=== PATIENT | female | born 1950 | race Caucasian/White ===

== ENCOUNTER → 2019-12-31 | Day surgery (SDC) | payer MEDICARE, OTHER ==
[2019-12-26 12:16] LABS: BASOPHILS # (AUTO) 0.1 (0.0-0.1); EOSINOPHILS # (AUTO) 0.1 (0.0-0.4); HEMATOCRIT 34.1 % (34.2-44.1); LYMPHOCYTES # (AUTO) 1.7 (1.0-3.2); LYMPHOCYTES % 24.5 % (18.0-39.1); MEAN CORPUSCULAR HEMOGLOBIN 28.6 pg (28-32); MEAN CORPUSCULAR HGB CONC 32.3 g/dL (31-35); MEAN CORPUSCULAR VOLUME 88.6 fL (81-99); MONOCYTES # (AUTO) 0.9 (0.2-0.8); MONOCYTES % 12.4 % (4.4-11.3); NEUTROPHILS # (AUTO) 4.3 (2.1-6.9); PLATELET COUNT 242 x10e3/uL (140-360); RED BLOOD COUNT 3.85 x10e6/uL (3.6-5.1); RED CELL DISTRIBUTION WIDTH 12.8 % (11.7-14.4)
[2019-12-26 12:39] LABS: ALANINE AMINOTRANSFERASE 26 IU/L (0-55); ALBUMIN 3.9 g/dL (3.5-5.0); ALBUMIN/GLOBULIN RATIO 1.2 (0.8-2.0); ALKALINE PHOSPHATASE 60 IU/L (40-150); ANION GAP 11.8 mmol/L (8-16); BLOOD UREA NITROGEN 10 mg/dL (7-26); BUN/CREATININE RATIO 11 (6-25); CALCIUM 9.5 mg/dL (8.4-10.2); CARBON DIOXIDE 27 mmol/L (22-29); CHLORIDE 100 mmol/L (98-107); CREATININE, SERUM 0.89 mg/dL (0.57-1.11); EST GLOMERULAR FILTRATION RATE > 60 ML/MIN (60-); GLUCOSE 85 mg/dL (74-118); POTASSIUM 3.8 mmol/L (3.5-5.1); SODIUM 135 mmol/L (136-145)
--- NOTE | 2019-12-27 09:56 | NUR ---
1000a Preop intake completed yesterday per phone interview by Olamide CANALES CCL. Pt denies any s/s related to COVID. Pre testing completed and Covid testing results pending. Upon interview disclosure pt voiced starting antibiotics for UTI today and will encourage her to inform procedural MD of additional medication added. Denies elevation of temperature and states has hx of "bladder issues" Reported on hand off to pre op staff.Tiffany CANALES of stated additional antibiotic w/o other infection symptoms at u this time.Current CBC with slight abnormalities and will reach out to office of Dr Velez. josse/rn
--- NOTE | 2019-12-27 10:07 | NUR ---
1002 left message with [email or web address] answering service regarding labs and pt current start of antibiotics for UTI scheduled [facility] Dec 30 NO s/s COVID related ds/rn
[~2019-12-31] MED LIST: ALPRAZOLAM 0.5 MG TAB ONE; ASPIRIN81 MG PO; BENICAR40 MG PO; CEFUROXIME250 MG PO; DIPHENHYDRAMINE HCL 25 MG CAP ONE; FENTANYL CITRATE/PF 100MCG/2 ML INJ ONE; HEPARIN SOD (PORCINE) 1000 UNIT/ML 30ML ONE; HEPARIN SOD/SOD CHLORIDE 2,000 ML ONE; HYDROCHLOROTHIA25 MG PO; IOPAMIDOL 370 MG/ML 200 ML INFUS..BTL INJ ONE; LIDOCAINE HCL 2% LOCAL 20 ML VIAL ONE; MIDAZOLAM HCL 2 MG/2 ML VIAL ONE; NITROGLYCERIN/D5W 200 MCG/ML 250 ML ONE; OXYBUTYNIN CHLOR5 MG PO; PRAVACHOL40 MG PO; PREVASTATIN PO; SODIUM CHLORIDE 0.9% 1000ML 1,000 ML ONE; VERAPAMIL HCL 2.5 MG/ML 2 ML VIAL ONE; VIT PO; Vit D3 PO; [UNRECOGNIZED DRUG - OTHER] PO
[2019-12-31 10:45] VITALS: BP 169/83
--- NOTE | 2019-12-31 10:45 | NUR ---
1045 completed preop prep and handoff to Gabe CANALES pre-op meds given.ds/carola
[2019-12-31 12:51] VITALS: BP 121/52
--- NOTE | 2019-12-31 12:51 | NUR ---
1251pm RECEIVING NOTE INFORMATION TECHNOLOGY DATA ANALYST RECOVERY DEPT............................................................... Bedside report received from Gabe CANALES. Identifierx2. Alert oriented and appropriate, PERRLA, respirations even and unlabored to room air. Pulses x4 extremities equal and strong. Pedal pulses PT/DP X4 and marked. Cap fill brisk < 3 sec. RT TR band No gross issues pain,pallor,pressure or dysrhythmia. Skin warm and dry integrity appears D/I. IV 20g to presents healthy w/o s/s of infiltration or complaint. Abdomen soft and supple. pt offered toileting, denies need to urinate or defecate. No personal affects with patient. at bedside. Pt and family verbalizes understanding of POC. Currently w/o complaint of pain or need.ds/rn
--- NOTE | 2019-12-31 13:08 | Operative Report ---
DATE OF PROCEDURE: 12/31/2019 SURGEON: Jeffery Velez MD INDICATIONS: Coronary artery disease, angina, abnormal stress test. PROCEDURES PERFORMED: 1. Left heart catheterization, selective coronary angiography. 2. Conscious sedation, 35 minutes. 3. Ultrasound-guided access in the right radial artery. 4. Deployment of right wrist TR band. COMPLICATIONS: None. BLOOD LOSS: Minimal. RECOMMENDATION: Medical therapy. DESCRIPTION OF PROCEDURE: Access was obtained in the right radial artery using ultrasound guidance. A 5-[place] sheath was placed. Coronary angiography demonstrated minimal coronary artery disease, 10% to 20% luminal irregularities. No critical stenosis or occlusions were noted. No intervention deemed necessary. Right wrist TR band applied. The patient discharged home the same day. Jeffery Velez MD [facility] /[id number]
[2019-12-31 13:30] VITALS: BP 130/65
--- NOTE | 2019-12-31 13:30 | NUR ---
1330pm RADIAL/PEDAL COMPRESSION REMOVAL NOTE: Initial Cuff volume -13cc 1330pm -3cc Removed No hematoma/bleeding noted with normal neurovascular function. 1400pm -5cc Removed No hematoma/ bleeding noted with normal neurovascular function. 1415pm -5cc Removed No hematoma/bleeding noted with normal neurovascular function. Air removal completed. Stasis achieved sterile 2x2,Tegaderm, Coban dressing No hematoma, bleeding noted with normal neurovascular function. Wrist splint in place. Pt instructed on POC. Ds/Rn
[2019-12-31 14:00] VITALS: BP 127/57
--- NOTE | 2019-12-31 14:00 | NUR ---
1400pm ACCOUNTANT CLERK RECOVERY DISCHARGE NURSING NOTE Pt meets DC criteria. Rt Wrist tr band assessed for s/s of complication and presence of hematoma. Skin warm, dry, no discolor, and pulses present. IV removed from left hand. Distal tip appears intact. VS WNL. Pt denies pain, sob, or need at this time. Family at BS Back to baseline orientation tolerating po intake. Review of discharge paperwork and follow up instructions. verbalized understanding. Pt to wheelchair and transported to front of hospital. Transferred to private vehicle under own strength w/o incident with DC paperwork in hand. - ds/rn
== END | disposition home or self-care (01) ==
LOC: CATH LAB 10:24
PROVIDERS: ATTEND Internal Medicine Interventional Cardiology
DX: I25.118 Atherosclerotic heart disease of native coronary artery with other forms of angina pectoris (principal); R94.39 Abnormal result of other cardiovascular function study; I10 Essential (primary) hypertension; Z01.812 Encounter for preprocedural laboratory examination; Z11.59 Encounter for screening for other viral diseases; Z68.42 Body mass index [BMI] 45.0-49.9, adult
CPT/HCPCS: 36415; 76937; 80053; 85025; 93454; C1769; C1887; J1644; J2001; J2250; J3010; J7030; Q9967; U0002; 99152